=== PATIENT | male | born 1990 | race Two or more races ===

== ENCOUNTER 2020-10-15 14:14 | Emergency (ER) | payer MEDICAID ==
[~2020-10-15] VITALS: Ht 167.6 cm; Wt 112.0 kg
[2020-10-15] MEDS ORDERED: KETOROLAC TROMETHAMINE INJ 30 MG/ML VIAL ONE (14:34)
[2020-10-15] MEDS ORDERED: ONDANSETRON HCL/PF 4 MG/2 ML VIAL ONE (14:34)
--- NOTE | 2020-10-15 14:43 | NUR ---
ALEXY FROM HOME TO ER BED 12. AAOX4. NOT IN RESP DISTRESS. AMBULATORY. CAME IN FOR LOWER ABD PAIN STARTED YESTERDAY AFTERNOON. PER PT, HE HAD ONLY A SMAL BM YESTERDAY. DENIES AND NAUSE NOR VOMMITING. WAS A THE BEDSIDE FOR EVAL. ORDERS RECEIVED, NOTED , AND CARRIED OUT. IV LINE ESTABLISHED ON R AC 18G, BLOOD DRAWN AND SENT TO LAB.
--- NOTE | 2020-10-15 14:52 | NUR ---
BACK FROM CT
[2020-10-15 14:53] LABS: BASOPHILS % (AUTO) 0.3 % (0.0-2.0); EOSINOPHILS % (AUTO) 0.6 % (0.0-6.0); HEMATOCRIT 46 % (39-51); HEMOGLOBIN 15.1 g/dL (13.5-17.5); LYMPHOCYTES # (AUTO) 1.9 K/uL (0.8-4.8); LYMPHOCYTES % (AUTO) 15.3 % (20.0-44.0); MEAN CORPUSCULAR HGB CONC 33 g/dl (31.0-36.0); MEAN CORPUSCULAR VOLUME 89 fL (80-96); MONOCYTES # (AUTO) 0.9 K/uL (0.1-1.30); MONOCYTES % (AUTO) 7.2 % (2.0-12.0); NEUTROPHILS # (AUTO) 9.8 K/uL (1.8-8.9); NEUTROPHILS % (AUTO) 76.6 % (43.0-81.0); PLATELET COUNT (AUTO) 235 K/uL (150-450); RED BLOOD CELL COUNT(AUTO) 5.13 MIL/uL (4.5-6.0); WHITE BLOOD COUNT (AUTO) 12.8 K/uL (4.3-11.0)
[2020-10-15] MEDS ORDERED: ONDANSETRON HCL/PF 4 MG/2 ML VIAL IVP ONE (15:00)
[2020-10-15] MEDS ORDERED: IV NS 0.9% 1,000 ML BAG IV ONE (15:00)
[2020-10-15] MEDS ORDERED: KETOROLAC TROMETHAMINE INJ 30 MG/ML VIAL IV ONE (15:00)
[2020-10-15 15:30] LABS: ALBUMIN 3.8 g/dL (3.4-5.0); BILIRUBIN,DIRECT 0.1 mg/dL (0.0-0.2); BILIRUBIN,TOTAL 0.5 mg/dL (0.2-1.0); CALCIUM, SERUM 8.9 mg/dL (8.5-10.1); CREATININE 0.9 mg/dL (0.6-1.3); POTASSIUM 3.5 mmol/L (3.5-5.1); TOTAL PROTEIN, SERUM 7.4 g/dL (6.4-8.2)
[2020-10-15] MEDS ORDERED: PIPERACILLIN /TAZOBACTAM 3.375 G in IV D5W 50 ML IV ONE (15:30)
[2020-10-15] MEDS ORDERED: PIPERACILLIN /TAZOBACTAM 3.375 G VIAL IV ONE (15:34)
[2020-10-15] MEDS ORDERED: HYDR-3972 PO (15:53)
[2020-10-15] MEDS ORDERED: IBUP-1957 PO (15:53)
[2020-10-15] MEDS ORDERED: AMOX-430 PO (15:53)
--- NOTE | 2020-10-15 16:02 | NUR ---
IV removed. Catheter intact and site benign. Pressure and 4x4 applied to site. No bleeding noted.
[2020-10-15 16:06] VITALS: BP 161/84
--- NOTE | 2020-10-15 16:06 | NUR ---
PT. VERBALIZED UNDERSTANDING OF AFTERCARE INSTRUCTIONS.Patient discharged to home in stable condition. Written and verbal after care instructions given. Patient verbalizes understanding of instruction.
== END 2020-10-15 16:06 | disposition home or self-care (01) ==
LOC: ER 14:17
DX: K57.32 Diverticulitis of large intestine without perforation or abscess without bleeding (principal)
CPT/HCPCS: 36415; 74176; 80048; 80076; 83690; 85025; 96361; 96374; 96375; 99284; J1885; J2405; J2543 ×2; J7030; J7060

== ENCOUNTER 2022-06-06 19:40 | Emergency (ER) | payer SELFPAY ==
[~2022-06-06 19:40] MED LIST: AMOX-430 PO; HYDR-3972 PO; IBUP-1957 PO
--- NOTE | 2022-06-06 21:40 | NUR ---
CALLED TO TRIAGE, PT NOT AROUND
--- NOTE | 2022-06-06 22:15 | NUR ---
CALLED TO TRIAGE FROM WAITING ROOM, PT NOT AROUND
--- NOTE | 2022-06-06 22:15 | NUR ---
PT LEFT W/O BEING TRIAGE
== END 2022-06-06 22:28 | disposition left against medical advice (07) ==
LOC: ER 19:42
DX: Z53.21 Procedure and treatment not carried out due to patient leaving prior to being seen by health care provider (principal)

== ENCOUNTER 2022-06-10 14:23 | Emergency (ER) | payer MEDICAID ==
[~2022-06-10] VITALS: Ht 172.7 cm; Wt 115.2 kg
--- NOTE | 2022-06-10 15:02 | NUR ---
LAC 20 G IV established, bloodwork collected and sent to lab. Line flushed. Pt tolerated well
[2022-06-10 15:12] LABS: BASOPHILS % (AUTO) 0.2 % (0.0-2.0); EOSINOPHILS % (AUTO) 0.4 % (0.0-6.0); HEMATOCRIT 50 % (39-51); HEMOGLOBIN 16.4 g/dL (13.5-17.5); LYMPHOCYTES # (AUTO) 1.9 K/uL (0.8-4.8); LYMPHOCYTES % (AUTO) 16.7 % (20.0-44.0); MEAN CORPUSCULAR HGB CONC 33 g/dl (31.0-36.0); MEAN CORPUSCULAR VOLUME 89 fL (80-96); MONOCYTES # (AUTO) 0.6 K/uL (0.1-1.30); MONOCYTES % (AUTO) 5.6 % (2.0-12.0); NEUTROPHILS # (AUTO) 8.9 K/uL (1.8-8.9); NEUTROPHILS % (AUTO) 77.1 % (43.0-81.0); PLATELET COUNT (AUTO) 265 K/uL (150-450); RED BLOOD CELL COUNT(AUTO) 5.62 MIL/uL (4.5-6.0); WHITE BLOOD COUNT (AUTO) 11.5 K/uL (4.3-11.0)
[2022-06-10 16:06] LABS: ALANINE AMINOTRANSFERASE 44 U/L (12-78); ALBUMIN 4.5 g/dL (3.4-5.0); ALKALINE PHOSPHATASE 82 U/L (46-116); ASPARTATE AMINOTRANSFERASE 18 U/L (15-37); BILIRUBIN,TOTAL 0.3 mg/dL (0.2-1.0); CALCIUM, SERUM 9.9 mg/dL (8.5-10.1); CARBON DIOXIDE 28 mmol/L (21-32); CHLORIDE 104 mmol/L (98-107); CREATININE 0.8 mg/dL (0.6-1.3); GLUCOSE 113 mg/dL (74-106); POTASSIUM 3.3 mmol/L (3.5-5.1); SODIUM SERUM 142 mmol/L (136-145); TOTAL PROTEIN, SERUM 8.2 g/dL (6.4-8.2); UREA NITROGEN, BLOOD 12 mg/dL (7-18)
[2022-06-10 16:47] VITALS: BP 160/79
== END 2022-06-10 16:48 | disposition home or self-care (01) ==
LOC: ER 14:25
DX: R42 Dizziness and giddiness (principal); Z79.899 Other long term (current) drug therapy
CPT/HCPCS: 36415; 71045-TC; 80048-TC; 80076-TC; 83880; 84484-TC; 85025-TC

== ENCOUNTER → 2022-06-27 | Emergency (ER) | payer MEDICAID ==
[~2022-06-27] VITALS: Ht 167.6 cm; Wt 85.3 kg
[~2022-06-27] MED LIST changes: +AMLO2.5T2 PO; +IV NS 0.9% 1,000 ML IV ONE
--- NOTE | 2022-06-27 11:37 | NUR ---
iv established. 20g RAC
--- NOTE | 2022-06-27 11:38 | NUR ---
BLOOD DRAWN AND SENT TO LAB
[2022-06-27 12:01] LABS: BASOPHILS % (AUTO) 0.3 % (0.0-2.0); EOSINOPHILS % (AUTO) 0.9 % (0.0-6.0); HEMATOCRIT 50 % (39-51); HEMOGLOBIN 16.1 g/dL (13.5-17.5); LYMPHOCYTES # (AUTO) 2.1 K/uL (0.8-4.8); MEAN CORPUSCULAR HGB CONC 32 g/dl (31.0-36.0); MEAN CORPUSCULAR VOLUME 90 fL (80-96); MONOCYTES # (AUTO) 0.4 K/uL (0.1-1.30); MONOCYTES % (AUTO) 5.7 % (2.0-12.0); NEUTROPHILS # (AUTO) 4.5 K/uL (1.8-8.9); NEUTROPHILS % (AUTO) 63.1 % (43.0-81.0); PLATELET COUNT (AUTO) 229 K/uL (150-450); RED BLOOD CELL COUNT(AUTO) 5.56 MIL/uL (4.5-6.0); WHITE BLOOD COUNT (AUTO) 7.1 K/uL (4.3-11.0)
[2022-06-27 12:12] LABS: CALCIUM, SERUM 9.4 mg/dL (8.5-10.1); CREATININE 0.7 mg/dL (0.6-1.3); MAGNESIUM 2.2 mg/dL (1.8-2.4); POTASSIUM 3.5 mmol/L (3.5-5.1)
--- NOTE | 2022-06-27 12:59 | NUR ---
DR. ABARCA AT BEDSIDE
[2022-06-27 13:08] VITALS: BP 140/88
--- NOTE | 2022-06-27 13:09 | NUR ---
PER MD D/C TO HOME. IN STABLE CONDITION. D/C PAPERS SIGNED.
== END | disposition home or self-care (01) ==
LOC: ER 10:41
DX: R42 Dizziness and giddiness (principal); R03.0 Elevated blood-pressure reading, without diagnosis of hypertension
CPT/HCPCS: 99284; 96360; 93005; 85025; 80048; 83735; 36415; J7030

== ENCOUNTER 2023-01-04 10:45 | Emergency (ER) | payer MEDICAID ==
[~2023-01-04] VITALS: Ht 167.6 cm; Wt 104.3 kg
[~2023-01-04 10:45] MED LIST changes: -IV NS 0.9% 1,000 ML IV ONE
[2023-01-04] MEDS ORDERED: OFLO5DRO5 LEFT EAR (13:48)
[2023-01-04] MEDS ORDERED: IBUP-1955 PO (13:48)
[2023-01-04 14:11] VITALS: BP 128/79; TEMP 98.1; O2SAT 99
== END 2023-01-04 14:12 | disposition home or self-care (01) ==
LOC: ER 10:55
DX: H92.02 Otalgia, left ear (principal); R51.9 Headache, unspecified; Z79.899 Other long term (current) drug therapy
CPT/HCPCS: 70450-TC

== ENCOUNTER 2023-02-06 06:25 | Emergency (ER) | payer MEDICAID ==
[~2023-02-06] VITALS: Ht 167.6 cm; Wt 104.3 kg
[~2023-02-06 06:25] MED LIST changes: +IBUP-1955 PO; +OFLO5DRO5 LEFT EAR
[2023-02-06] MEDS ORDERED: ACETAMINOPHEN ES 500 MG TABLET ONE (06:52)
[2023-02-06] MEDS ORDERED: KETOROLAC TROMETHAMINE 15 MG/ML VIAL ONE (06:52)
[2023-02-06] MEDS ORDERED: IV NS 0.9% 1,000 ML BAG IV ONE (07:00)
[2023-02-06] MEDS ORDERED: KETOROLAC TROMETHAMINE 15 MG/ML VIAL IV ONE (07:00)
[2023-02-06] MEDS ORDERED: ACETAMINOPHEN 325 MG TABLET PO ONE (07:00)
[2023-02-06] MEDS ORDERED: IBUP-1955 PO (07:12)
[2023-02-06] MEDS ORDERED: OSEL75CA PO (08:07)
[2023-02-06 08:36] VITALS: BP 125/80; TEMP 98.3; O2SAT 96
== END 2023-02-06 08:37 | disposition home or self-care (01) ==
LOC: ER 06:29
DX: J06.9 Acute upper respiratory infection, unspecified (principal); R05.9 Cough, unspecified; R09.81 Nasal congestion; R50.9 Fever, unspecified; R00.0 Tachycardia, unspecified; M79.10 Myalgia, unspecified site; J02.9 Acute pharyngitis, unspecified; I10 Essential (primary) hypertension; Z20.822 Contact with and (suspected) exposure to COVID-19
CPT/HCPCS: 99284; 96374; 71045; 96361; 87426; 87804 ×2; J7030; J1885; C9803

== ENCOUNTER 2023-03-09 10:03 | Emergency (ER) | payer SELFPAY ==
[~2023-03-09] VITALS: Ht 167.6 cm; Wt 105.2 kg
[~2023-03-09 10:03] MED LIST changes: +OSEL75CA PO
[2023-03-09 10:10] VITALS: BP 130/86; TEMP 99
[2023-03-09 10:23] VITALS: O2SAT 99
== END 2023-03-09 10:25 | disposition home or self-care (01) ==
LOC: ER 10:07
DX: B34.9 Viral infection, unspecified (principal); I10 Essential (primary) hypertension